=== PATIENT | female | born 1995 | race Caucasian/White ===

== ENCOUNTER → 2016-11-16 12:58 | Outpatient (CLI) | payer MEDICAID ==
[2015-04-16 07:53] VITALS: BMI 26.6
[~2016-11-16 12:58] MED LIST: FLAGYL250 MG PO; ZOFRAN4 MG PO
== END | disposition home or self-care (01) ==
LOC: D.LDO 12:58
DX: Z34.83 Encounter for supervision of other normal pregnancy, third trimester (principal); Z3A.31 31 weeks gestation of pregnancy

== ENCOUNTER → 2016-11-20 10:05 | Outpatient (CLI) | payer MEDICAID ==
[2015-04-16 07:53] VITALS: BMI 26.6
== END | disposition home or self-care (01) ==
LOC: D.LDO 10:05
DX: Z34.93 Encounter for supervision of normal pregnancy, unspecified, third trimester (principal); Z3A.32 32 weeks gestation of pregnancy

== ENCOUNTER → 2016-11-23 13:03 | Outpatient (CLI) | payer MEDICAID ==
[2015-04-16 07:53] VITALS: BMI 26.6
== END | disposition home or self-care (01) ==
LOC: D.LDO 13:03
DX: Z34.83 Encounter for supervision of other normal pregnancy, third trimester (principal); Z3A.32 32 weeks gestation of pregnancy

== ENCOUNTER → 2016-11-27 12:55 | Outpatient (CLI) | payer MEDICAID ==
[2015-04-16 07:53] VITALS: BMI 26.6
== END | disposition home or self-care (01) ==
LOC: D.LDO 12:55
DX: Z34.83 Encounter for supervision of other normal pregnancy, third trimester (principal); Z3A.33 33 weeks gestation of pregnancy

== ENCOUNTER → 2016-11-30 12:05 | Outpatient (CLI) | payer MEDICAID ==
[2015-04-16 07:53] VITALS: BMI 26.6
== END | disposition home or self-care (01) ==
LOC: D.LDO 12:05
DX: Z34.83 Encounter for supervision of other normal pregnancy, third trimester (principal); Z3A.33 33 weeks gestation of pregnancy

== ENCOUNTER 2016-12-04 19:41 | Outpatient (CLI) | payer MEDICAID ==
[2015-04-16 07:53] VITALS: BMI 26.6
== END 2016-12-04 20:08 | disposition home or self-care (01) ==
LOC: D.LDO 19:41
DX: O14.93 Unspecified pre-eclampsia, third trimester (principal); Z3A.34 34 weeks gestation of pregnancy

== ENCOUNTER → 2016-12-07 11:20 | Outpatient (CLI) | payer MEDICAID ==
[2015-04-16 07:53] VITALS: BMI 26.6
== END | disposition home or self-care (01) ==
LOC: D.LDO 11:20
DX: Z34.93 Encounter for supervision of normal pregnancy, unspecified, third trimester (principal); Z3A.34 34 weeks gestation of pregnancy

== ENCOUNTER 2016-12-11 15:38 | Outpatient (CLI) | payer MEDICAID ==
[2015-04-16 07:53] VITALS: BMI 26.6
== END 2016-12-11 16:15 | disposition home or self-care (01) ==
LOC: D.LDO 15:38
DX: O09.93 Supervision of high risk pregnancy, unspecified, third trimester (principal); Z3A.35 35 weeks gestation of pregnancy

== ENCOUNTER → 2016-12-14 11:18 | Outpatient (CLI) | payer MEDICAID ==
[2015-04-16 07:53] VITALS: BMI 26.6
== END | disposition home or self-care (01) ==
LOC: D.LDO 11:18
DX: O09.93 Supervision of high risk pregnancy, unspecified, third trimester (principal); Z3A.35 35 weeks gestation of pregnancy

== ENCOUNTER → 2016-12-18 15:23 | Outpatient (CLI) | payer MEDICAID ==
[2015-04-16 07:53] VITALS: BMI 26.6
== END | disposition home or self-care (01) ==
LOC: D.LDO 15:23
DX: Z34.83 Encounter for supervision of other normal pregnancy, third trimester (principal); Z3A.39 39 weeks gestation of pregnancy

== ENCOUNTER 2016-12-20 05:43 | Inpatient (IN) | payer MEDICAID ==
[~2016-12-20] VITALS: Ht 162.6 cm; Wt 96.2 kg
[2016-12-20] VITALS (13 sets, daily range): BP systolic 104–132; BP diastolic 56–87; Ht 162.6 cm; Wt 96.2 kg
[2016-12-20 06:26] LABS: HEMATOCRIT 39.3 % (36.0-48.0); HEMOGLOBIN 13.5 g/dL (12-16); MCH 31.4 pg (26.0-34.0); MCHC 34.4 g/dL (31.0-37.0); MCV 91.4 fL (80.0-100.0); MEAN PLATELET VOLUME 10.7 fL (7.4-10.4); RBC 4.3 10x6/uL (4.00-5.40); RDW 13.6 % (11.5-14.5); WBC 14.7 10x3/uL (4.8-10.8)
[2016-12-20 06:48] LABS: APPEARANCE HAZY (CLEAR); BILIRUBIN NEGATIVE (NEGATIVE); COLOR YELLOW (YELLOW); GLUCOSE NEGATIVE (NEGATIVE); KETONE NEGATIVE (NEGATIVE); LEUKOCYTE ESTERASE NEGATIVE (NEGATIVE); NITRITE NEGATIVE (NEGATIVE); PROTEIN NEGATIVE (NEGATIVE); UROBILINOGEN NORMAL (NORMAL)
[2016-12-20 07:04] LABS: UDS - AMPHET NEGATIVE QUAL (NEGATIVE); UDS - BARB NEGATIVE QUAL (NEGATIVE); UDS - BENZO POSITIVE QUAL (NEGATIVE); UDS - COCAINE NEGATIVE QUAL (NEGATIVE); UDS - METH NEGATIVE QUAL (NEGATIVE); UDS - OPIATE NEGATIVE QUAL (NEGATIVE); UDS - PCP NEGATIVE QUAL (NEGATIVE); UDS - THC POSITIVE QUAL (NEGATIVE)
[2016-12-21 00:18] VITALS: BP 117/55
[2016-12-21 03:56] VITALS: BP 126/69
[2016-12-21 06:03] LABS: HEMATOCRIT 32.8 % (36.0-48.0); HEMOGLOBIN 11.1 g/dL (12-16); MCH 31.6 pg (26.0-34.0); MCHC 33.8 g/dL (31.0-37.0); RBC 3.51 10x6/uL (4.00-5.40); RDW 13.6 % (11.5-14.5); WBC 14.6 10x3/uL (4.8-10.8)
[2016-12-21 06:07] LABS: MCV 93.4 fL (80.0-100.0)
[2016-12-21 07:25] LABS: RAPID PLASMA REAGIN Non Reactive (Non Reactive)
[2016-12-21 07:51] VITALS: BP 135/65
[2016-12-21 12:00] VITALS: BP 128/70
[2016-12-21 16:22] VITALS: BP 124/65
[2016-12-21 19:18] VITALS: BP 134/74
[2016-12-22 00:10] VITALS: BP 146/86
[2016-12-22 00:53] VITALS: BP 134/83
[2016-12-22 04:24] VITALS: BP 137/83
[2016-12-22 07:31] VITALS: BP 127/74
[2016-12-22] MEDS ORDERED: MEPERIDINE HCL50 MG PO (09:30)
[2016-12-23 17:08] LABS: UDSC - AMPHET Negative ng/mL (Cutoff=1000); UDSC - BARB Negative ng/mL (Cutoff=300); UDSC - BENZO Negative (Cutoff=300); UDSC - COC Negative ng/mL (Cutoff=300); UDSC - METH Negative ng/mL (Cutoff=300); UDSC - OPIATES Negative ng/mL (Cutoff=300); UDSC - PCP Negative ng/mL (Cutoff=25); UDSC - PROPOXY Negative ng/mL (Cutoff=300); UDSC - THC Positive (Cutoff=50)
== END 2016-12-22 12:00 | disposition home or self-care (01) | DRG 766 ==
LOC: D.LD 05:43 → D.SDCHOLD 07:30 → D.LD 13:15
PROVIDERS: ADMIT Obstetrics & Gynecology
PROC: 10D00Z1 Extraction of Products of Conception, Low, Open Approach (ICD-10-PCS; principal; 2016-12-20 07:30)
DX: O34.219 Maternal care for unspecified type scar from previous cesarean delivery (principal); Z3A.39 39 weeks gestation of pregnancy; Z37.0 Single live birth; O99.334 Smoking (tobacco) complicating childbirth

== ENCOUNTER 2016-12-30 10:13 | Emergency (ER) | payer MEDICAID | END 2016-12-30 10:50 | disposition home or self-care (01) | LOC: D.ER 10:13 | DX: F41.9 Anxiety disorder, unspecified (principal); J45.909 Unspecified asthma, uncomplicated; F17.200 Nicotine dependence, unspecified, uncomplicated ==

== ENCOUNTER 2017-02-19 10:19 | Emergency (ER) | payer MEDICAID ==
[2016-12-20 06:27] VITALS: BMI 36.4
[~2017-02-19 10:19] MED LIST changes: +MEPERIDINE HCL50 MG PO
[2017-02-19 11:38] LABS: BASOPHILS 0.2 % (0-2); HEMATOCRIT 41.4 % (36.0-48.0); HEMOGLOBIN 13.7 g/dL (12-16); IMMATURE GRANULOCYTES 0.2 % (0-5); MCH 30.3 pg (26.0-34.0); MCHC 33.1 g/dL (31.0-37.0); MCV 91.6 fL (80.0-100.0); MEAN PLATELET VOLUME 10.5 fL (7.4-10.4); NEUTROPHILS 58.6 % (40-80); RBC 4.52 10x6/uL (4.00-5.40); RDW 12.6 % (11.5-14.5); WBC 9.2 10x3/uL (4.8-10.8)
[2017-02-19 11:39] LABS: PLATELET COUNT 253 10x3/uL (130-400)
[2017-02-19 11:52] LABS: CALC OSMOLALITY 277 mosm/kg (275-300); CALCIUM 9.6 mg/dL (8.5-10.1); CARBON DIOXIDE 22.4 mmol/L (21.0-32.0); CHLORIDE - SERUM 104 mmol/L (98-107); CREATININE - SERUM 0.7 mg/dL (0.6-1.3); GLUCOSE 87 mg/dL (74-106); POTASSIUM - SERUM 4.2 mmol/L (3.5-5.1); SODIUM 139 mmol/L (136-145); UREA NITROGEN 15 mg/dL (7-18); eGFR NON AFRICAN AMERICAN > 90 mL/min (90-120)
[2017-02-19 11:53] LABS: HCG SERUM NEGATIVE (NEGATIVE)
[2017-02-19 12:24] LABS: APPEARANCE CLEAR (CLEAR); BILIRUBIN NEGATIVE (NEGATIVE); COLOR YELLOW (YELLOW); EPITHELIAL CELLS 0-5 /hpf (0-5); GLUCOSE NEGATIVE (NEGATIVE); KETONE NEGATIVE (NEGATIVE); NITRITE NEGATIVE (NEGATIVE); PROTEIN NEGATIVE (NEGATIVE); SPECIFIC GRAVITY 1.015 (1.005-1.020); UROBILINOGEN NORMAL (NORMAL); WHITE CELLS - URINE 0-5 /hpf (0-5)
[2017-02-19 12:25] LABS: BACTERIA MODERATE /hpf (NONE SEEN); MUCUS <1+ /lpf (NONE SEEN); RED CELLS - URINE RARE /hpf (0-5)
== END 2017-02-19 13:15 | disposition home or self-care (01) ==
LOC: D.ER 10:19
PROVIDERS: Emergency Medicine
DX: N93.9 Abnormal uterine and vaginal bleeding, unspecified (principal); N94.6 Dysmenorrhea, unspecified; T50.995A Adverse effect of other drugs, medicaments and biological substances, initial encounter; Y92.029 Unspecified place in mobile home as the place of occurrence of the external cause; F17.200 Nicotine dependence, unspecified, uncomplicated

== ENCOUNTER 2017-12-07 12:14 | Emergency (ER) | payer MEDICAID ==
[~2017-12-07] VITALS: Ht 162.6 cm; Wt 90.9 kg
[2017-12-07 12:56] VITALS: BP 142/85; Ht 162.6 cm; Wt 90.9 kg
[2017-12-07] MEDS ORDERED: KLONOPIN1 MG PO (12:58)
== END 2017-12-07 16:22 | disposition home or self-care (01) ==
LOC: D.ER 12:14
DX: S90.31XA Contusion of right foot, initial encounter (principal); W20.8XXA Other cause of strike by thrown, projected or falling object, initial encounter; Y93.89 Activity, other specified; Y92.019 Unspecified place in single-family (private) house as the place of occurrence of the external cause; I10 Essential (primary) hypertension; F17.200 Nicotine dependence, unspecified, uncomplicated

== ENCOUNTER 2018-06-03 01:20 | Emergency (ER) | payer MEDICAID ==
[~2018-06-03] VITALS: Ht 162.6 cm; Wt 94.1 kg
[~2018-06-03 01:20] MED LIST changes: +KLONOPIN1 MG PO
[2018-06-03 01:35] VITALS: Ht 162.6 cm; Wt 94.1 kg
[2018-06-03 02:13] LABS: COLOR YELLOW (YELLOW)
[2018-06-03 02:14] LABS: APPEARANCE HAZY (CLEAR); BACTERIA NONE SEEN /hpf (NONE SEEN); BILIRUBIN NEGATIVE (NEGATIVE); EPITHELIAL CELLS NSEEN /hpf (0-5); GLUCOSE NEGATIVE (NEGATIVE); KETONE NEGATIVE (NEGATIVE); NITRITE NEGATIVE (NEGATIVE); PROTEIN NEGATIVE (NEGATIVE); SPECIFIC GRAVITY 1.015 (1.005-1.020); URIC ACID CRYSTALS 0-5 /hpf (NONE SEEN); WHITE CELLS - URINE 0-5 /hpf (0-5)
[2018-06-03 02:19] LABS: HCG URINE NEGATIVE (NEGATIVE)
[2018-06-03] MEDS ORDERED: NAPROSYN500 MG PO (02:28)
[2018-06-03 03:08] VITALS: BP 128/70
== END 2018-06-03 03:08 | disposition home or self-care (01) ==
LOC: D.ER 01:20
PROVIDERS: Family Medicine
DX: S83.91XA Sprain of unspecified site of right knee, initial encounter (principal); W22.8XXA Striking against or struck by other objects, initial encounter; Y93.89 Activity, other specified; Y92.89 Other specified places as the place of occurrence of the external cause; N93.8 Other specified abnormal uterine and vaginal bleeding; M54.5 Low back pain

== ENCOUNTER 2019-05-07 16:13 | Emergency (ER) | payer SELFPAY ==
[~2019-05-07] VITALS: Ht 162.6 cm; Wt 90.9 kg
[~2019-05-07 16:13] MED LIST changes: +NAPROSYN500 MG PO
[2019-05-07 16:55] VITALS: BP 134/87; Ht 162.6 cm; Wt 90.9 kg
[2019-05-08] MEDS ORDERED: MUCINEX DM ER1 EAC1 PO (18:56)
[2019-05-08] MEDS ORDERED: TAMIFLU75 MG PO (18:56)
== END 2019-05-07 17:25 | disposition left against medical advice (07) ==
LOC: D.ER 16:13
DX: J11.1 Influenza due to unidentified influenza virus with other respiratory manifestations (principal); I10 Essential (primary) hypertension; Z72.0 Tobacco use

== ENCOUNTER 2019-05-08 16:11 | Emergency (ER) | payer SELFPAY ==
[~2019-05-08] VITALS: Ht 162.6 cm; Wt 90.9 kg
[2019-05-08 16:37] VITALS: Ht 162.6 cm; Wt 90.9 kg
[2019-05-08] MEDS ORDERED: MUCINEX DM ER1 EAC1 PO (18:56)
[2019-05-08] MEDS ORDERED: TAMIFLU75 MG PO (18:56)
[2019-05-08 19:20] VITALS: BP 133/79
== END 2019-05-08 19:13 | disposition home or self-care (01) ==
LOC: D.ER 16:11
DX: J11.1 Influenza due to unidentified influenza virus with other respiratory manifestations (principal); I10 Essential (primary) hypertension; Z72.0 Tobacco use

== ENCOUNTER 2019-06-27 08:10 | Emergency (ER) | payer SELFPAY ==
[~2019-06-27] VITALS: Ht 162.6 cm; Wt 81.8 kg
[~2019-06-27 08:10] MED LIST changes: +MUCINEX DM ER1 EAC1 PO; +TAMIFLU75 MG PO
[2019-06-27 08:12] VITALS: Ht 162.6 cm; Wt 81.8 kg
[2019-06-27 08:49] LABS: BASOPHILS 0.2 % (0-2); HEMATOCRIT 42.1 % (36.0-48.0); HEMOGLOBIN 14.2 g/dL (12-16); IMMATURE GRANULOCYTES 0.1 % (0-5); LYMPHOCYTES 31.3 % (15-50); MCH 30.1 pg (26.0-34.0); MCHC 33.7 g/dL (31.0-37.0); MCV 89.4 fL (80.0-100.0); MEAN PLATELET VOLUME 9.6 fL (7.4-10.4); MONOCYTES 10.4 % (2-11); PLATELET COUNT 264 10x3/uL (130-400); RBC 4.71 10x6/uL (4.00-5.40); RDW 13.2 % (11.5-14.5); WBC 8.4 10x3/uL (4.8-10.8)
[2019-06-27 08:58] LABS: CALC OSMOLALITY 279 mosm/kg (275-300); CALCIUM 8.8 mg/dL (8.5-10.1); CARBON DIOXIDE 24.4 mmol/L (21.0-32.0); CHLORIDE - SERUM 107 mmol/L (98-107); CREATININE - SERUM 0.8 mg/dL (0.6-1.3); GLUCOSE 95 mg/dL (74-106); POTASSIUM - SERUM 3.5 mmol/L (3.5-5.1); SODIUM 141 mmol/L (136-145); UREA NITROGEN 9 mg/dL (7-18); eGFR NON AFRICAN AMERICAN > 90 mL/min (90-120)
[2019-06-27 09:02] LABS: BILIRUBIN NEGATIVE (NEGATIVE); GLUCOSE NEGATIVE (NEGATIVE); KETONE NEGATIVE (NEGATIVE); NITRITE NEGATIVE (NEGATIVE); SPECIFIC GRAVITY 1.015 (1.005-1.020)
[2019-06-27 09:03] LABS: WHITE CELLS - URINE 0-5 /hpf (NEGATIVE)
[2019-06-27 09:04] LABS: ALBUMIN 3.4 g/dL (3.4-5.0); ALKALINE PHOSPHATASE 68 U/L (30-120); ALT (SGPT) 17 U/L (10-68); BILIRUBIN - TOTAL 0.11 mg/dL (0.2-1.3); PROTEIN - SERUM 6.7 g/dL (6.4-8.2)
[2019-06-27 09:08] LABS: BACTERIA FEW /hpf (NEGATIVE); EPITHELIAL CELLS OCC /hpf (0-5); RED CELLS - URINE RARE /hpf (0-5)
[2019-06-27 10:11] VITALS: BP 139/95
== END 2019-06-27 10:11 | disposition home or self-care (01) ==
LOC: D.ER 08:10
PROVIDERS: Family Medicine
DX: T19.2XXA Foreign body in vulva and vagina, initial encounter (principal); R10.2 Pelvic and perineal pain; N89.8 Other specified noninflammatory disorders of vagina; I10 Essential (primary) hypertension; Z72.0 Tobacco use